=== PATIENT | female | born 1970 ===

== ENCOUNTER 2017-03-29 15:09 | Emergency (ER) | payer OTHER ==
[2017-03-29 15:10] VITALS: O2SAT 98
[2017-03-29 15:36] VITALS: BP 147/87; PULSE 85; RESP 20; TEMP 98
[2017-03-29] MEDS ORDERED: ONDANSETRON 4 MG ODT BU ONE (15:43)
[2017-03-29] MEDS ORDERED: ONDANSETRON 4 MG ODT ONE (15:46)
[2017-03-29 15:56] LABS: BASOPHILS % (AUTO) 1 % (0-3); EOSINOPHILS % (AUTO) 1 % (0-9); HEMATOCRIT 41 % (35-47); MEAN CORPUSCULAR HGB CONC 33.1 gm/dl (32.0-36.0); MEAN CORPUSCULAR VOLUME 95 fL (81-99); MONOCYTES % (AUTO) 7.8 % (0-12); NEUTROPHILS % (AUTO) 73.4 % (37-80)
[2017-03-29 16:07] LABS: ALBUMIN 3.8 gm/dl (3.4-5.0); CALCIUM 8.9 mg/dl (8.5-10.1); POTASSIUM 4.1 mMol/L (3.5-5.1)
== END 2017-03-29 16:23 | disposition home or self-care (01) ==
LOC: ED 15:09
DX: F10.10 Alcohol abuse, uncomplicated (principal)
CPT/HCPCS: 80053; 82150; 85025; 99282

== ENCOUNTER 2018-12-22 17:22 | Observation (INO) | payer OTHER ==
[2018-12-22] MEDS ORDERED: ALBUTEROL/IPRATROPIUM 1 VIAL SOL INH ONE (17:57)
[2018-12-22] MEDS ORDERED: ALBUTEROL/IPRATROPIUM 1 VIAL SOL ONE (17:58)
[2018-12-22] MEDS ORDERED: SODIUM CHLORIDE 0.9% 1000ML 1,000 ML IV ONE (18:02)
[2018-12-22 18:17] LABS: HEMATOCRIT 42 % (35-47); HEMOGLOBIN 12.9 gm/dl (12.0-15.5); MEAN CORPUSCULAR HEMOGLOBIN 28.9 pg (27.0-32.0); MEAN CORPUSCULAR VOLUME 93 fL (81-99)
[2018-12-22 18:21] LABS: CALCIUM 7.9 mg/dl (8.5-10.1); CARBON DIOXIDE 24.8 mEq/L (21-32); CREATININE 1.13 mg/dl (0.60-1.00)
[2018-12-22] MEDS ORDERED: SOLUMEDROL 125 MG/2 ML 125 MG/2 ML PDS IV ONE (18:21)
[2018-12-22] MEDS ORDERED: MAGNESIUM SULFATE 1 GM/2 ML SOL IV ONE (18:21)
[2018-12-22] MEDS ORDERED: MAGNESIUM SULFATE 5 GM/10 ML SOL ONE (18:25)
[2018-12-22] MEDS ORDERED: SOLUMEDROL 125 MG/2 ML 125 MG/2 ML PDS ONE (18:26)
[2018-12-22 18:34] LABS: BAND NEUTROPHILS % (MANUAL) 7 %; BASOPHILS % (MANUAL) 0 % (0-3); EOSINOPHILS % (MANUAL) 0 % (0-9); LYMPHOCYTES % (MANUAL) 8 % (10-50); MONOCYTES % (MANUAL) 12 % (0-12); NEUTROPHILS % (MANUAL) 73 % (37-80); NORMAL RBCS NORMAL RBCS
[2018-12-22] MEDS ORDERED: LEVOFLOXACIN 750MG/150 ML (PM) 750 MG/150 ML SOL IV ONE (18:41)
[2018-12-22] MEDS ORDERED: SODIUM CHLORIDE 0.9% 50 ML 25 ML IV PRN (18:41)
[2018-12-22] MEDS ORDERED: LEVOFLOXACIN 25 MG/ML SOL IV ONE (18:44)
[2018-12-22] MEDS ORDERED: LEVOFLOXACIN 25 MG/ML 750 MG in SODIUM CHLORIDE 0.9% 250 ML 150 ML IV ONE (18:58)
[2018-12-22 19:03] LABS: INFLUENZA A NEGATIVE (NEGATIVE); INFLUENZA B NEGATIVE (NEGATIVE)
[2018-12-22] MEDS ORDERED: ACETAMINOPHEN 325 MG PO ONE (19:10)
[2018-12-22] MEDS ORDERED: ACETAMINOPHEN 325 MG ONE (19:11)
[2018-12-22] MEDS ORDERED: LACTATED RINGERS 1,000 ML IV SCH (20:45)
[2018-12-23] MEDS ORDERED: ALBUTEROL/IPRATROPIUM 1 VIAL SOL INH PRN (03:29)
[2018-12-23 07:56] VITALS: BP 118/67; PULSE 86; RESP 16; TEMP 97.8; O2SAT 97
[2018-12-23] MEDS ORDERED: PREDNISONE 20 MG TAB PO SCH (09:00)
[2018-12-23] MEDS ORDERED: DOXYCYCLINE 100 MG TAB PO SCH (09:00)
[2018-12-23 09:12] LABS: HEMATOCRIT 34 % (35-47); HEMOGLOBIN 10.9 gm/dl (12.0-15.5); MEAN CORPUSCULAR HEMOGLOBIN 29.4 pg (27.0-32.0); MEAN CORPUSCULAR HGB CONC 31.7 gm/dl (32.0-36.0); MEAN CORPUSCULAR VOLUME 93 fL (81-99)
[2018-12-23] MEDS ORDERED: ALBUTEROL/IPRATROPIUM 1 VIAL SOL INH ONE (09:18)
[2018-12-23 09:35] LABS: CALCIUM 7.2 mg/dl (8.5-10.1); CARBON DIOXIDE 21.6 mEq/L (21-32); CREATININE 0.99 mg/dl (0.60-1.00); THYROID STIMULATING HORMONE 0.203 uIU/ml (0.358-3.740)
[2018-12-23 09:44] LABS: BAND NEUTROPHILS % (MANUAL) 34 %; BASOPHILS % (MANUAL) 0 % (0-3); EOSINOPHILS % (MANUAL) 0 % (0-9); LYMPHOCYTES % (MANUAL) 6 % (10-50); MONOCYTES % (MANUAL) 8 % (0-12); NEUTROPHILS % (MANUAL) 52 % (37-80)
[2018-12-23 09:45] LABS: NORMAL RBCS PRESENT
== END 2018-12-23 10:30 | disposition home or self-care (01) | DRG 683 ==
LOC: ED 17:22 → ACUTE CARE 20:35 → UNDOADMOB 20:35 → ACUTE CARE 20:50
PROVIDERS: ADMIT Surgery; ATTEND Family Medicine
DX: N17.9 Acute kidney failure, unspecified (principal); J44.0 Chronic obstructive pulmonary disease with (acute) lower respiratory infection; J40 Bronchitis, not specified as acute or chronic; R06.02 Shortness of breath; E05.90 Thyrotoxicosis, unspecified without thyrotoxic crisis or storm; D72.829 Elevated white blood cell count, unspecified
CPT/HCPCS: 36415; 71045; 71275; 80048; 83605; 84443; 85007; 85027; 85379; 87040; 87804; 99285; J1956; J2930; J3475; Q9967; A9270-GY